=== PATIENT | female | born 1980 | race Caucasian/White ===

== ENCOUNTER 2021-05-12 10:18 | Emergency (ER) | payer BC, OTHER ==
[2021-05-12 10:38] VITALS: RESP 18
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
[2021-05-12] MEDS ORDERED: ACETAMINOPHEN TAB 500 MG TAB PO STA (11:40)
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
[2021-05-12 13:01] VITALS: BP 128/82; PULSE 73; TEMP 97.9
== END 2021-05-12 12:57 | disposition home or self-care (01) ==
LOC: EC 10:18
DX: S16.1XXA Strain of muscle, fascia and tendon at neck level, initial encounter (principal); F32.9 Major depressive disorder, single episode, unspecified; F41.9 Anxiety disorder, unspecified; F17.200 Nicotine dependence, unspecified, uncomplicated; F12.90 Cannabis use, unspecified, uncomplicated; V49.49XA Driver injured in collision with other motor vehicles in traffic accident, initial encounter; Y92.410 Unspecified street and highway as the place of occurrence of the external cause
CPT/HCPCS: 70450; 71046; 72125; 72170; 99284